=== PATIENT | male | born 1960 | race Caucasian/White ===

== ENCOUNTER 2023-01-02 05:22 | Day surgery (SDC) | payer MEDICARE ==
[~2023-01-02] VITALS: Ht 188 cm; Wt 114.9 kg
[2023-01-02] MEDS ORDERED: VICTOZA6 MG/ML SQ (05:40)
[2023-01-02] MEDS ORDERED: DESYREL 50MG50 MG PO (05:41)
[2023-01-02] MEDS ORDERED: COZAAR100 MG PO (05:41)
[2023-01-02] MEDS ORDERED: LIPITOR 10MG10 MG PO (05:41)
[2023-01-02 06:05] VITALS: BP 154/96; PULSE 79; TEMP 98
[2023-01-02 07:30] VITALS: BP 106/79; PULSE 82; TEMP 97
--- NOTE | 2023-01-02 07:30 | NUR ---
PATIENT AMBULATED TO CHAIR WITH STEADY GAIT, ALERT AND ORIENTED X3. DENIES PAIN, NAUSEA AND SHORTNESS OF BREATH. BREATHING REGULAR AND UNLABORED ON ROOM AIR. SKIN WARM AND DRY. NURSE HANDOFF COMPLETED IN ROOM. SEE CHART FOR VITAL SIGNS. PATIENT HAD A MUFFIN AND JUICE. BOTH FOOD AND DRINK TOLERATED WELL. SPOUSE, MARIO, PRESENT IN ROOM. CALL LIGHT IN REACH.
[2023-01-02 07:45] VITALS: BP 120/91; PULSE 72
[2023-01-02 07:50] VITALS: BP 120/89; PULSE 75
--- NOTE | 2023-01-02 08:01 | NUR ---
0751: DISCHARGE TEACHING COMPLETED WITH PRINTED EDUCATION AND INSTRUCTIONS SENT HOME WITH PATIENT. PATIENT AND SPOUSE VERBALIZED UNDERSTANDING OF TEACHING. 0756: DR. SANCHEZ MET WITH PATIENT AND SPOUSE TO DISCUSS PROCEDURE. IV REMOVED. GAUZE AND COBAN PLACED OVER SITE. PATIENT DISCHARGED HOME WITH [facility] [employer].
== END 2023-01-02 08:01 | disposition home or self-care (01) ==
LOC: SDCO 05:22
DX: Z12.11 Encounter for screening for malignant neoplasm of colon (principal); Z86.010 Personal history of colon polyps
CPT/HCPCS: J2704; J7120